=== PATIENT | male | born 1975 | race Two or more races ===

== ENCOUNTER 2017-05-07 18:35 | Emergency (ER) | payer MEDICAID ==
[~2017-05-07] VITALS: Ht 170.2 cm; Wt 90.7 kg
[2017-05-07] MEDS ORDERED: predniSONE 20 MG TABLET PO ONE (22:45)
[2017-05-07] MEDS ORDERED: HYDROCODONE/APAP 5-325MG TABLET PO ONE (22:45)
[2017-05-07] MEDS ORDERED: predniSONE 20 MG TABLET ONE (23:06)
[2017-05-07] MEDS ORDERED: HYDROCODONE/APAP 5-325MG TABLET ONE (23:06)
[2017-05-07 23:29] VITALS: BP 133/83
--- NOTE | 2017-05-07 23:29 | NUR ---
Patient discharged to home in stable conditon. Written and verbal after care instructions given. Patient verbalizes understanding of instructions.
== END 2017-05-07 23:30 | disposition home or self-care (01) ==
LOC: ER 18:35
DX: M70.22 Olecranon bursitis, left elbow (principal); Y93.89 Activity, other specified
CPT/HCPCS: 73080; 99284; A4663; J7512